=== PATIENT | male | born 1950 | race Caucasian/White ===

== ENCOUNTER 2017-09-09 13:29 | Emergency (ER) | payer OTHER, MEDICARE ==
[~2017-09-09] VITALS: Ht 172.7 cm; Wt 88.1 kg
[~2017-09-09 13:29] MED LIST: ADULT LOW DOSE81 M1 PO; LIPITOR40 MG PO; MICROZIDE12.5 M1 PO; NORVASC5 MG PO; PAXIL20 MG PO
[2017-09-09 13:53] LABS: POINT-OF-CARE METER ID UU13113702
[2017-09-09 14:31] LABS: EOSINOPHIL (%) 1.7 % (0-5); EOSINOPHIL COUNT 0.1 K/uL (0-0.3); HEMATOCRIT 43.4 % (38.0-50.0); IMMATURE GRANULOCYTE (%) 0.3 % (0.0-0.7); INSTRUMENT ABS NEUTROPHIL CT 5.2 K/uL; LYMPHOCYTE COUNT 1.3 K/uL (1.0-2.8); MCH 31.2 PG (29.0-34.0); MCHC 34.3 G/DL (30.0-36.0); MEAN PLAT.VOLUME 10.1 uM^3 (9.0-12.4); MONOCYTE (%) 10.5 % (3-12); MONOCYTE COUNT 0.8 K/uL (0-0.8); NEUTROPHIL (%) 69.8 % (45-76); NEUTROPHIL COUNT 5.2 K/uL (1.8-6.4); PLATELET COUNT 192 K/uL (156-360); RBC DIS.WIDTH-CV 12.3 % (11.8-14.6); RBC DIS.WIDTH-SD 40.8 % (39-53); RED BLOOD COUNT 4.77 M/uL (4.00-5.50); WHITE BLOOD COUNT 7.5 K/uL (4.1-10.2)
[2017-09-09 14:41] LABS: CHLORIDE 103 mEq/L (99-109); POTASSIUM 3.5 mEq/L (3.7-5.4); SODIUM 137 mEq/L (136-147)
[2017-09-09 14:43] LABS: GLUCOSE 104 mg/dL (70-99)
[2017-09-09 14:44] LABS: ANION GAP 9 MEQ/L (2-14)
[2017-09-09 14:47] LABS: GFR ESTIMATE (CALCULATED) > 59 mL/min/
[2017-09-09 14:48] LABS: UREA NITROGEN (BUN) 19 mg/dL (9-23)
[2017-09-09 14:53] LABS: TROP-I INTERPRETATION NEGATIVE; TROPONIN-I 0.02 ng/mL (0.0-0.30)
[2017-09-09 16:06] VITALS: BP 133/72
== END 2017-09-09 16:24 | disposition home or self-care (01) ==
LOC: EME → EDBD 13:29 → EME 16:24
PROVIDERS: Emergency Medicine
DX: R73.03 Prediabetes (principal); R41.0 Disorientation, unspecified; Z86.73 Personal history of transient ischemic attack (TIA), and cerebral infarction without residual deficits; I10 Essential (primary) hypertension; E78.5 Hyperlipidemia, unspecified; Z85.820 Personal history of malignant melanoma of skin; Z79.82 Long term (current) use of aspirin
CPT/HCPCS: 70450; 71020; 80048; 81003; 82948; 84484; 85025; 99281; 99284